=== PATIENT | male | born 1990 | race Asian ===

== ENCOUNTER 2017-08-07 21:01 | Emergency (ER) | payer SELFPAY ==
[~2017-08-07] VITALS: Ht 170.2 cm; Wt 63.5 kg
[2017-08-07 21:07] VITALS: BP 141/78
== END 2017-08-07 22:08 | disposition home or self-care (01) ==
LOC: ER 21:09
DX: S63.611A Unspecified sprain of left index finger, initial encounter (principal); W23.1XXA Caught, crushed, jammed, or pinched between stationary objects, initial encounter; Y93.67 Activity, basketball; Y92.89 Other specified places as the place of occurrence of the external cause; Y99.9 Unspecified external cause status
CPT/HCPCS: 29130; 73140; 99284; A4606; Z7610